=== PATIENT | male | born 1985 | race African-American/Black ===

== ENCOUNTER 2016-12-23 11:42 | Emergency (ER) | payer BC | END 2016-12-23 13:55 | disposition home or self-care (01) | LOC: ER1 11:42 | DX: S46.912A Strain of unspecified muscle, fascia and tendon at shoulder and upper arm level, left arm, initial encounter (principal); Z88.0 Allergy status to penicillin; X58.XXXA Exposure to other specified factors, initial encounter | CPT/HCPCS: 73030; 96372; 99283; J1885 ==

== ENCOUNTER 2017-02-03 11:31 | Emergency (ER) | payer BC | END 2017-02-03 12:46 | disposition home or self-care (01) | LOC: ER1 11:31 | DX: S46.912A Strain of unspecified muscle, fascia and tendon at shoulder and upper arm level, left arm, initial encounter (principal); F17.210 Nicotine dependence, cigarettes, uncomplicated; Z88.0 Allergy status to penicillin; X58.XXXA Exposure to other specified factors, initial encounter | CPT/HCPCS: 96372; 99283; J1100; J1885 ==

== ENCOUNTER 2022-06-02 10:33 | Emergency (ER) | payer BC ==
[2022-06-02] MEDS ORDERED: CORTIZONE-10 PL28 GM TP (11:44)
== END 2022-06-02 12:00 | disposition home or self-care (01) ==
LOC: ER1 10:33
DX: R21 Rash and other nonspecific skin eruption (principal); F17.210 Nicotine dependence, cigarettes, uncomplicated; Z88.0 Allergy status to penicillin
CPT/HCPCS: 99282